=== PATIENT | female | born 1950 | race Caucasian/White ===

== ENCOUNTER 2019-03-24 13:00 | Observation (INO) | payer MEDICARE ==
--- NOTE | 2019-05-06 15:20 | HP ---
PREOPERATIVE HISTORY AND PHYSICAL: DATE OF ADMISSION/SURGERY: 05/19/19 DATE OF OFFICE VISIT: 05/06/19 ATTENDING PHYSICIAN: Dr. Kate Heard.* (DICTATED BY KEISHA MICHAEL) SURGERY SCHEDULED: Left total knee arthroplasty. CHIEF COMPLAINT: Left knee pain. HISTORY OF PRESENT ILLNESS: Ms. Wong is a 69-year-old female with over 20 years of increasingly severe bilateral knee pain where her left is more painful than her right. She has daily aching along the joint line in her knee. She has difficulty walking more than a block without significant pain. She has difficulty with prolonged standing and has difficulty ambulating on stairs. She has used anti- inflammatories, steroid injections, physical therapy, and brace wear which have not been significantly helpful. She would like to proceed with left total knee arthroplasty scheduled with Dr. Heard. PAST MEDICAL HISTORY: Significant for asthma, depression, anxiety, and right Achilles tendinitis/tendinopathy. PAST SURGICAL HISTORY: She has had a biopsy with lumpectomy for a benign breast tumor at age 19, left knee arthroscopy for meniscus tear 10 years ago. MEDICATIONS: 1. She takes CoQ10 Plus 100/20 mg p.o. daily. 2. Skullcap dried herb supplement for anxiety. 3. Supplement called RocketOz X4 probiotic. ALLERGIES: No known drug allergies. FAMILY HISTORY: Her mother had a history of Alzheimer's dementia. Dad with a history of brain hemorrhage. Brother at age 46 from a congenital heart defect. SOCIAL HISTORY: She does not use tobacco, alcohol, or recreational drugs. She lives with housemates. REVIEW OF SYSTEMS: She has had recent problems with vertigo and has chronic problem with IBS/diarrhea which has fully been worked up and no known etiology. She denies loss of consciousness, lightheadedness, shortness of breath, chest pain, palpitations, genitourinary problems, neurologic problems. PHYSICAL EXAMINATION GENERAL: She is a well-developed, well-nourished 69-year-old female, in no acute distress, pleasant, cooperative. VITAL SIGNS: Height 65 inches, weight 239, pulse 76, BP 132/82, temperature 97.5, respirations 15. HEENT: PERRLA. EOMI. LUNGS: Clear to auscultation without wheezes. HEART: Regular rate and rhythm. No murmur. ABDOMEN: Obese, soft, nontender, nondistended. Normoactive bowel sounds x4. MUSCULOSKELETAL: Left knee shows no open lesions or excoriations. She has a moderate effusion, roughly 10 degrees to 120 degrees of flexion. There is no varus or valgus instability. 5/5 dorsiflexion and plantarflexion strength. Full sensation to light touch distally. She has active dorsiflexion of the left ankle. DIAGNOSTIC STUDIES/LAB DATA: Plain films of the left knee show medial bone-on- bone contact with osteophyte formation and subchondral sclerosis. IMPRESSION: Advanced osteoarthritis, left knee. PLAN: The patient is elected to proceed with left total knee arthroplasty, which is scheduled on 05/19/[address] Kate Headr. She is scheduled to see her primary care provider on 05/11/19 and also her process improvement analyst. She has reviewed the risks and benefits of this procedure with Dr. Heard at our office visit today, 05/06/19 and elected to proceed. She will follow up in the office in roughly 10 to 14 days postoperatively. KEISHA MICHAEL [id number]/[facility] #: [id number] SUMIT
[2019-05-19] MEDS ORDERED: Tranexamic Acid 1,000 MG in NS 0.9% 50 ML* (outpatient use) IV SCH ×2
[2019-05-19] MEDS ORDERED: Famotidine IV* 10 MG/ML 2 ML (20 mg) IV ONE (06:00)
[2019-05-19] MEDS ORDERED: celeCOXIB CAP* 200 MG PO ONE (06:00)
[2019-05-19] MEDS ORDERED: Levalbuterol 0.63MG/3ML NEB* UNIT OF USE INH ONE (06:00)
[2019-05-19] MEDS ORDERED: Dexamethasone IV* 4 MG/ML 1 ML (4 MG) IV SLOW PU ONE (06:00)
[2019-05-19] MEDS ORDERED: Acetaminophen IV 1GM/100ML * 1,000 MG/100 ML VIAL IVPB ONE (06:00)
[2019-05-19] MEDS ORDERED: Gabapentin CAP(*) 300 MG PO ONE (06:00)
[2019-05-19] MEDS ORDERED: Lactated Ringers 1000 ML Bag* 1,000 ML IV SCH (06:00)
--- OUTSIDE RECORDS SUMMARY | 2019-05-19 07:04 | XMS REPORT | Continuity of Care Document ---
:1950 External Reference #:[id number] Author Name Speedy Mc M.D. (transmitted by agent of provider Angeles Dooley ) Address [address] [address] Care Team Providers Name Role Phone Clary Martinez MD - Internal Medicine Care Team Information Library Services Assistant [phone] Problems Active Problems Provider Date Localized, primary osteoarthritis Kate Heard M.D. Onset: 01/09/2019 Achilles bursitis Jay Chilel MD Onset: 04/01/2018 Social History Type Date Description Comments Sex Unknown ETOH Use Occasionally consumes alcohol Tobacco Use Start: Unknown Patient has never smoked Smoking Status Reviewed: 05/06/19 Patient has never smoked Allergies, Adverse Reactions, Alerts Description No Known Drug Allergies Medications Active Medications SIG Qnty Indications Ordering Provider Date Co Q-10 Plus Unknown 100-20mg Capsules Skull Cap - Dried Herb Unknown B10.X4 Unknown Medications Administered in Office Medication SIG Qnty Indications Ordering Provider Date Depomedrol 40MG Kate Heard M.D. 01/09/2019 Injection Depomedrol 40MG Kate Heard M.D. 01/09/2019 Injection Triamcinolone (Kenalog) Jay Chilel MD 07/21/2018 Injection Triamcinolone (Kenalog) Jay Chilel MD 07/21/2018 Injection Immunizations Description No Information Available Vital Signs Date Vital Result Comment 05/06/2019 10:04am Height 65 inches 5'5" Weight 239.00 lb Heart Rate 76 /min BP Systolic 132 mmHg BP Diastolic 82 mmHg Respiratory Rate 15 /min Body Temperature 97.5 F Pain Level 4 BMI (Body Mass Index) 39.8 kg/m2 01/09/2019 1:14pm Height 65 inches 5'5" Weight 231.00 lb BP Systolic 122 mmHg BP Diastolic 77 mmHg Respiratory Rate 17 /min Pain Level 7 BMI (Body Mass Index) 38.4 kg/m2 Results Test Date Facility Test Result H/L Range Note Urinalysis Profile 05/08/2019 [facility] Urine Color Yellow [address] [place] [address] [phone] Urine Appearance Cloudy Urine Specific [place] 1.025 Normal 1.010-1.030 Urine pH 5.0 Normal 5-9 Urine Urobilinogen Negative Negative Urine Ketones Negative Negative Urine Protein Negative Negative Urine Leukocytes 1+ Abnormal Negative Urine Blood Negative Negative Urine Nitrite Negative Negative Urine Bilirubin Negative Negative Urine Glucose Negative Negative Urine White Blood Cell Trace(0-5/hpf) Absent Urine Red Blood Cell 2+(6-10/hpf) Abnormal Absent Urine Bacteria Absent Absent Urine Squamous Epithelial Cell Present Abnormal Absent Urine Calcium Oxalate Cryst Present Abnormal Absent Inr/Protime 05/08/2019 [facility] Inr 0.97 Normal 0.82-1.[address] [place] [address] [phone] Laboratory test 05/08/2019 [facility] Partial 34.0 Normal 26.0 -38.[address] [place] [address] Time PTT [phone] CBC Auto Diff 05/08/2019 [facility] White Blood 6.8 10^3/uL Normal 3.5-10.[address] [place] [address] [phone] Red Blood Count 4.60 10^6/uL Normal 3.70-4.87 Hemoglobin 14.1 g/dL Normal 12.0-16.0 Hematocrit 42 % Normal 35-47 Mean Corpuscular Volume 92 fL Normal 80-97 Mean Corpuscular Hemoglobin 31 pg Normal 27-31 Mean Corpuscular HGB Conc 33 g/dL Normal 31-36 Red Cell Distribution Width 14 % Normal 10-15 Platelet Count 275 10^3/uL Normal 150-450 Mean Platelet Volume 8.8 fL Normal 7.4-10.4 Abs Neutrophils 4.5 10^3/uL Normal 1.5-7.7 Abs Lymphocytes 1.6 10^3/uL Normal 1.0-4.8 Abs Monocytes 0.6 10^3/uL Normal 0-0.8 Abs Eosinophils 0.1 10^3/uL Normal 0-0.6 Abs Basophils 0.1 10^3/uL Normal 0-0.2 Abs Nucleated RBC 0.0 10^3/uL Granulocyte % 65.6 % Lymphocyte % 23.7 % Monocyte % 8.3 % Eosinophil % 1.2 % Basophil % 1.2 % Nucleated Red Blood Cells % 0.1 Comp Metabolic 05/08/2019 [facility] Sodium 142 mmol/L Normal 135-[address] [place] [address] [phone] Potassium 3.9 mmol/L Normal 3.5-5.0 Chloride 106 mmol/L Normal 101-111 Co2 Carbon Dioxide 30 mmol/L Normal 22-32 Anion Gap 6 mmol/L Normal 2-11 Glucose 94 mg/dL Normal 70-100 Blood Urea Nitrogen 14 mg/dL Normal 6-24 Creatinine 0.78 mg/dL Normal 0.51-0.95 BUN/Creatinine Ratio 17.9 Normal 8-20 Calcium 9.6 mg/dL Normal 8.6-10.3 Total Protein 6.7 g/dL Normal 6.4-8.9 Albumin 4.0 g/dL Normal 3.2-5.2 Globulin 2.7 g/dL Normal 2-4 Albumin/Globulin Ratio 1.5 Normal 1-3 Total Bilirubin 0.30 mg/dL Normal 0.2-1.0 Alkaline Phosphatase 71 U/L Normal 34-104 Alt 12 U/L Normal 7-52 Ast 14 U/L Normal 13-39 Egfr Non- 72.8 >60 Egfr 88.1 >60 2 Type & Screen 05/08/2019 [facility] Patient Blood Type B Negative [address] [place] [address] [phone] Antibody Screen NEGATIVE Urine Culture And 05/08/2019 [facility] Urine Culture SEE RESULT [address] [place] [address] [phone] 1 Standard intensity warfarin therapeutic range: 2.0-3.0 High intensity warfarin therapeutic range: 2.5-3.5 2 Because ethnic data is not always readily available, this report includes an eGFR for both -Americans and non- Americans. The National Kidney Disease Education Program (NKDEP) does not endorse the use of the MDRD equation for patients that are not between the ages of 18 and 70, are , have extremes of body size, muscle mass, or nutritional status, or are non- or non-. According to the National Kidney Foundation, irrespective of diagnosis, the stage of the disease is based on the level of kidney function: Stage Description GFR(mL/min/1.73 m(2)) 1 Kidney damage with normal or decreased GFR 90 2 Kidney damage with mild decrease in GFR 60-89 3 Moderate decrease in GFR 30-59 4 Severe decrease in GFR 15-29 5 Kidney failure <15 (or dialysis) 3 SEE RESULT BELOW Name: MIGUELBUNNY KING : [address]: Kate Heard MD Acct: [id number] Unit: [id number] AGE: 69 Location: [facility] Re05/08/19 SEX: F Status: REG REF SPEC: [id number] KARLA: 05/08/[address]: Kate Heard MD REQ: [id number] RECD: 05/08/19 STATUS: COMP _ SOURCE: URINE SPDESC: ORDERED: Urine Culture QUERIES: Urine Source: Clean Catch Procedure Result Reported Site Urine Culture Final 05/09/19- 1624 ML No growth of clinically significant organisms * ML - Main Lab . END OF REPORT DEPARTMENT OF PATHOLOGY, [address] [place] [address] Jake Easley M.D. Director [facility] # [id number] Procedures Date Code Description Status 01/09/2019 49696 Inject/Drain Joint/Bursa Major W/O US Completed Medical Devices Description No Information Available Encounters Type Date Location Provider Dx Diagnosis Office Visit 01/09/2019 [facility] Kate Heard, M25.561 Pain in right 1:[facility] knee M25.562 Pain in left knee M25.461 Effusion, right knee M25.462 Effusion, left knee M17.0 Bilateral primary osteoarthritis of knee Assessments Date Code Description Provider 05/06/2019 M25.562 Pain in left knee Kate Heard M.D. 05/06/2019 M25.462 Effusion, left knee Kate Heard M.D. 05/06/2019 M17.0 Bilateral primary osteoarthritis of knee Kate Heard M.D. 01/09/2019 M25.561 Pain in right knee Kate Heard M.D. 01/09/2019 M25.562 Pain in left knee Kate Heard M.D. 01/09/2019 M25.461 Effusion, right knee Kate Heard M.D. 01/09/2019 M25.462 Effusion, left knee Kate Heard M.D. 01/09/2019 M17.0 Bilateral primary osteoarthritis of knee Kate Heard M.D. Plan of Treatment Future Appointment(s):05/29/2019 1:45 pm - Kate He[facility]/19/2019 9:45 am - Kate Heard M.D[facility] at [facility]05/06/2019 - Kate Heard M.D.M25.562 Pain in left kneeFollow up:Follow up: 10-14 days post opM25.462 Effusion, left kneeM17.0 Bilateral primary osteoarthritis of knee Functional Status Description No Information Available Mental Status Description No Information Available Referrals Description No Information Available
--- OUTSIDE RECORDS SUMMARY | 2019-05-19 07:04 | XMS REPORT | Continuity of Care Document ---
:1950 External Reference #:[id number] Author Name Kate Heard M.D. 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/2019 9:45 am - Kate Heard M.D. at [facility]/06/2019 - Kate Heard M.D.M25.562 Pain in left kneeFollow up:Follow up: 10-14 days post opM25.462 Effusion, left kneeM17.0 Bilateral primary osteoarthritis of knee Functional Status Description No Information Available Mental Status Description No Information Available Referrals Description No Information Available
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
--- OUTSIDE RECORDS SUMMARY | 2019-05-19 07:04 | XMS REPORT | Summary of Care ---
:1950 Author Organization [facility] Address [address] [place] [address] Care Team Providers Name Role Phone Clary Martinez MD Primary Care Provider Reason for Visit Reason Comments Back Pain Encounter Details Date Type Department Care Team Description 05/06/2019 Office Visit [facility] - Paris Hunt, Chronic bilateral low [place] Physical PT back pain, with Therapy [address] sciatica presence [address] [place] [address] unspecified (Primary [address] [phone] Dx) [place] [phone] Allergies No Known Allergiesdocumented as of this encounter (statuses as of 05/06/2019) Medications Medication Sig Dispensed Refills Start Date End Date Status Loperamide HCl (IMODIUM Take 1 Tab by 0 Active A-D PO) mouth NEEDED. Coenzyme Q10 (COQ10) 100 Take by mouth. 0 Active MG Oral Cap Lactobacillus Rhamnosus, Take by mouth. 0 Active GG, (PROBIOTIC COLIC PO) meclizine (ANTIVERT) 25 Take 1 Tab by 20 Tab 0 04/24/2019 Active MG Oral Tab mouth THREE TIMES DAILY NEEDED for dizziness/vertig o. documented as of this encounter (statuses as of 05/06/2019) Active Problems Problem Noted Date Achilles tendinitis 04/30/2018 documented as of this encounter (statuses as of 05/06/2019) Social History Tobacco Use Types Packs/Day Years [...] encounter Progress Notes Gilbert Paris, PT - 05/06/2019 4:00 PM EDT [facility] Treatment Note Outpatient Physical Therapy Services [facility] PHYSICAL THERAPY [address] [place] [phone] Treatment Number: 2 Referring Physician: Clary Martinez Primary Diagnosis: ICD-9-CM ICD-10-CM 1. Chronic bilateral low back pain, with sciatica presence unspecified 724.2 M54.5 338.29 G89.29 Time In: 0 Time Out: 5 Total Session Minutes: 25 Pain at Start of Care: 2/10 Pain at End of Care: 0/10 Subjective Comments: Had to stop doing extensions prone due to L shoulder pain. Over all better but not resolved. Still surgery scheduled for 05/19 Interventions: Therapeutic Exercises (22659) Patient Education/Home Exercise Program: see exercises below Number of Exercises?: 8 Total Minutes (all Therapeutic Exercise): 15 Exercise #1 Exercise Name: Press ups on forearms Reason for Exercise: Joint Mobility Location/Body Area: Lumbar Spine Sets/Reps: 10x Exercise #2 Exercise Name: Prone ly ing Reason for Exercise: Pain Control Location/Body Area: Lumbar Spine Sets/Reps: 5 min Exercise #3 Exercise Name: Standing hip flexor stretch Reason for Exercise: Joint Mobility Location/Body Area: Hip Exercise #4 Exercise Name: Ming stretch Reason for Exercise: Flexibility Location/Body Area: Hip Sets/Reps: 60 sec each Exercise #5 Exercise Name: Standing extensions on wal Reason for Exercise: Pain Control Location/Body Area: Lumbar Spine Sets/Reps: 10x Exercise #6 Exercise Name: Standing back extension with towel pulll Reason for Exercise: Pain Control Location/Body Area: Lumbar Spine Sets/Reps: 10x Exercise #7 Exercise Name: modified ming stretch Reason for Exercise: Flexibility Location/Body Area: Hip Sets/Reps: 60 sec each side Manual Therapy (60120) Soft Tissue Mobilization: Manual Tissue Mobilization Soft Tissue Mobilization Details: lumbar paraspinals on L PROM: P-A lumbar spine Total Minutes (All Manual Therapy): 10 Assessment: Patient demonstrates improved lumbar extension, no radicular pain. Tolerated standing extensions well and modified ming stretch vs standing hip flexor stretch. Patient also reports ongoing difficulty in prolonged sitting, rising from a chair, walking. Skilled Physical Therapy servicesare required to address ongoing functional and objective limitations/impairments including decreasedlumbar extension, short hip flexors. Plan for Next Visit: FU 1 more visit before her surgery Total UNTIMED Code Treatment Minutes: Total TIMED Code Treatment Minutes: 25 Total Treatment Minutes: 25 Author: Paris Hunt, PT 05/06/2019 16:25 documented in this encounter Plan of Treatment Date Type Specialty Care Team Description 05/11/2019 Office Visit Internal Medicine Clary Martinez MD [facility] [place] [address] [phone] 05/11/2019 Office Visit Cardiology Jorje Rivera MD [address] [place] [address] [phone] 05/11/2019 Office Visit Physical Therapy Paris Hunt, PT [address] [place] [address] [phone] 05/21/2019 Office Visit Internal Medicine Clary Martinez MD [address] [place] [address] [phone] Health Maintenance Due Date Last Done Comments [...] pain, with sciatica presence unspecified - Primary documented in this encounter Insurance Payer Benefit Plan / Subscriber ID Effective Dates Phone Address Type Group MEDICARE MEDICARE PART A xxxxxxxxxxx 2013-Present Medicare & B [facility]CIAL [facility] xxxxxxxxxxx 2018-Present [facility] OPTIONS documented as of this encounter
--- OUTSIDE RECORDS SUMMARY | 2019-05-19 07:04 | XMS REPORT | Summary of Care ---
:1950 Author Organization [facility] Address [address] [place] [place] [address] Care Team Providers Name Role Phone Clary Martinez MD Primary Care Provider Reason for Visit Reason Comments Back Pain Encounter Details Date Type Department Care Team Description 05/11/2019 Office Visit [facility] - Paris Hunt, Chronic bilateral low [place] Physical PT back pain, with Therapy [address] sciatica presence [address] [place] [address] unspecified (Primary [address] [phone] Dx) [place] [phone] Allergies No Known Allergiesdocumented as of this encounter (statuses as of 05/11/2019) Medications Medication Sig Dispensed Refills Start Date [...] as of this encounter (statuses as of 05/11/2019) Active Problems Problem Noted Date Achilles tendinitis 04/30/2018 documented as of this encounter (statuses as of 05/11/2019) Social History Tobacco Use Types Packs/Day Years [...] encounter Progress Notes Gilbert Paris, PT - 05/11/2019 4:00 PM EDT [facility] Treatment Note Outpatient Physical Therapy Services [facility] PHYSICAL THERAPY [address] [place] [phone] Treatment Number: 3 Referring Physician: Clary Martinez Primary Diagnosis: ICD-9-CM ICD-10-CM 1. Chronic bilateral low back pain, with sciatica presence unspecified 724.2 M54.5 338.29 G89.29 Time In: 399 Time Out: 5 Total Session Minutes: 25 Pain at Start of Care: 2/10 Pain at End of Care: 0/10 Subjective Comments: Today is a rough day, whenever her knees are really sore the rest of her bodyhurts too. Interventions: Therapeutic Exercises (46158) Patient Education/Home Exercise Program: see exercises below [...] Sets/Reps: 60 sec each side Manual Therapy (60712) Soft Tissue Mobilization: Manual Tissue Mobilization Soft Tissue Mobilization Details: lumbar paraspinals on L PROM: P-A lumbar spine Total Minutes (All Manual Therapy): 15 Assessment: Patient demonstrates limited lumbar extension due to excessive flexion at knees causinghip flexion. Patient also reports ongoing difficulty in standing, walking, rising from a chir. Skilled Physical Therapy services are required to address ongoing functional and objective limitations/ impairments including decreased lumbar mobility and core strength. Plan for Next Visit: Pt will be having TKA on L knee next week. We will resume Pt when she is cleared by Total UNTIMED Code Treatment Minutes: Total TIMED Code Treatment Minutes: 30 Total Treatment Minutes: 30 Author: Paris Hunt, PT 05/11/2019 16:31 documented in this encounter Plan of Treatment Date Type Specialty Care Team Description 05/21/2019 Office Visit Internal Medicine Clary Martinez MD [address] [place] [phone] Health Maintenance Due Date Last Done Comments [...] PART A xxxxxxxxxxx 2013-Present Medicare & B [facility] COMMERCIAL [facility] CARE xxxxxxxxxxx 2018-Present [facility] OPTIONS documented as of this encounter
--- OUTSIDE RECORDS SUMMARY | 2019-05-19 07:04 | XMS REPORT | Summary of Care ---
:1950 Author Organization [facility] Address [address] [place] [place] [address] Care Team Providers Name Role Phone Clary Martinez MD Primary Care Provider Reason for Visit Reason Comments Dizziness pt states 1 weeks of intermittent dizziness and nausea. yesterday was the worest bout." the room was spinning " Encounter Details Date Type Department Care Team Description 04/24/2019 Office Visit [facility] Dinora Del Castillo, Vertigo (Primary Dx) [address] [place] [address] [phone] [place] [address] [phone] Allergies No Known Allergiesdocumented as of this encounter (statuses as of 04/24/2019) Medications Medication Sig Dispensed Refills Start Date [...] as of this encounter (statuses as of 04/24/2019) Active Problems Problem Noted Date Achilles tendinitis 04/30/2018 documented as of this encounter (statuses as of 04/24/2019) Social History Tobacco Use Types Packs/Day Years Used Date Never Smoker Smokeless Tobacco: Never Used Sex Assigned at Date Recorded Not on file Job Start Date Occupation Industry Not on file Not on file Not on file Travel History Travel Start Travel End No recent travel history available. documented as of this encounter Last Filed Vital Signs Vital Sign Reading Time Taken Comments Blood Pressure 128/82 04/24/2019 7:51 AM EDT Pulse 74 04/24/2019 7:51 AM EDT Temperature - - Respiratory Rate - - Oxygen Saturation 97% 04/24/2019 7:51 AM EDT Inhaled Oxygen Concentration - - Weight 106.1 kg (234 lb) 04/24/2019 7:51 AM EDT Height 165.1 cm (5' 5") 04/24/2019 7:51 AM EDT Body Mass Index 38.94 04/24/2019 7:51 AM EDT documented in this encounter Patient Instructions Patient InstructionsDoDinora mejia PA-C - 04/24/2019 8:00 AM EDTEscribed meclizine 25mg, 1 pill TID as needed, will cause drowsiness Push water, reduce salt intake Call if not improving or with any questions or concerns documented in this encounter Progress Notes Dinora Del Castillo PA-C - 04/24/2019 8:00 AM EDT PATIENT: Venus Wong : 1950 DATE OF SERVICE: 04/24/2019 REFERRING PRACTITIONER: Liam PRIMARY CARE PROVIDER: Clary Martinez CHIEF COMPLAINT: Chief Complaint Patient presents with Dizziness pt states 1 weeks of intermittent dizziness and nausea. yesterday was the worest bout." the room was spinning " Subjective HISTORY OF PRESENT ILLNESS: Venus Wong is a 69-y.o. female who presents with intermittent dizziness and nausea x 1 week Says yesterday symptoms were very bad, room was spinning Water: not much daily Salt: often eats salty foods Driving to [place] Saturday Denies fever, chills, vomiting, diarrhea, chest pains, SOB Past Medical History: Diagnosis Date Depression situational- has not had in years History of breast surgery right breast lumpectomy at age 20 non cancerous Postmenopausal Past Surgical History: Procedure Laterality Date ARTHROSCOPY, KNEE MENISECTOMY Left RI MASTECTOMY, SIMPLE, COMPLETE Right lumpectomy- benign age 19 RI REMOVAL GALLBLADDER Family History Problem Relation Age of Onset Dementia Mother Respiratory Mother of pneumonia Cancer Mother throat Aneurysm Father AAA Stroke Father of massive stroke Heart Brother Congenital heart defect No Known Problems Daughter No Known Problems Son No Known Problems Son No Known Problems Son No Known Problems Daughter Current Outpatient Medications Medication Sig Loperamide HCl (IMODIUM A-D PO) Take 1 Tab by mouth NEEDED. No current facility-administered medications for this visit. No Known Allergies Social History Socioeconomic History Marital status: Single Spouse name: Not on file Number of children: Not on file Years of education: Not on file Highest education level: Not on file Occupational History Not on file Social Needs Financial resource strain: Not on file Food insecurity: Worry: Not on file Inability: Not on file Transportation needs: Medical: Not on file Non-medical: Not on file Tobacco Use Smoking status: Never Smoker Smokeless tobacco: Never Used Substance and Sexual Activity Alcohol use: Not on file Comment: social- occassional Drug use: No Sexual activity: Not on file Lifestyle Physical activity: Days per week: Not on file Minutes per session: Not on file Stress: Not on file Relationships Social connections: Talks on phone: Not on file Gets together: Not on file Attends quaker service: Not on file Active member of club or organization: Not on file Attends meetings of clubs or organizations: Not on file Relationship status: Not on file Intimate partner violence: Fear of current or ex partner: Not on file Emotionally abused: Not on file Physically abused: Not on file Forced sexual activity: Not on file Other Topics Concern Back Care Not Asked Bike Helmet Not Asked Blood Transfusions Not Asked Caffeine Concern Not Asked Exercise Not Asked Hobby Hazards Not Asked International Travel Not Asked Service Not Asked Occupational Exposure Not Asked Seat Belt Not Asked Self-Exams Not Asked Sleep Concern Not Asked Special Diet Not Asked Stress Concern Not Asked Weight Concern Not Asked Social History Narrative Not on file REVIEW OF SYSTEMS: Skin: negative skin lesions Eyes: negative visual blurring Ears/Nose/Throat: positive sinus pressure (chronic), post nasal drip Respiratory: positive cough Cardiovascular: negative chest pain Gastrointestinal: negative abdominal pain, constipation, diarrhea, nausea or vomiting Genitourinary: negative burning on urination, dysuria or vaginal discharge Musculoskeletal: positive arthritis/joint pain Neurologic: positive dizziness Psychiatric: negative anxiety Hematologic/Lymphatic/Immunologic: positive allergies Endocrine: negative diabetes or hot flashes/sweats Objective PHYSICAL EXAMINATION: VITALS: BP 128/82 (BP Location: Left arm, Patient Position: Sitting) | Pulse 74 | Ht 5' 5" (1.651m) | Wt 234 lb (106.1 kg) | SpO2 97% | BMI 38.94 kg/m Body mass index is 38.94 kg/m. General appearance: alert, mild distress, cooperative, oriented times 3, obese Skin: Skin color, texture, turgor normal. No rashes or lesions. Head: Normocephalic. No masses, lesions, tenderness or abnormalities Eyes: conjunctivae/corneas clear. PERRL, EOM's intact. No nystagmus Ears: TMs and canals normal bilaterally Nose/Sinuses: mucosa normal, no rhinorrhea Oropharynx: positive findings: mild oropharyngeal erythema, post nasal drip present Neck: Neck supple, FROM. No cervical or supraclavicular adenopathy. Lungs: Lungs clear. Chest symmetrical. Normal breath sounds. Heart: RRR. No murmur, clicks or gallops. No peripheral edema NEUROLOGIC: alert, oriented x3. Gait normal. Cranial nerves 2-12 and sensation grossly intact. Romberg: positive sway, negative pronator drift . IMPRESSION: ICD-9-CM ICD-10-CM 1. Vertigo 780.4 R42 Plan PLAN: Escribed meclizine 25mg, 1 pill TID as needed, will cause drowsiness Push water, reduce salt intake Call if not improving or with any questions or concerns Author: Dinora Del Castillo PA-C 04/24/2019 07:50 documented in this encounter Plan of Treatment Date Type Specialty Care Team Description 05/07/2019 Office Visit Physical Therapy Paris Hunt, PT [address] [place] [address] [phone] 05/21/2019 Office Visit Internal Medicine Clary Martinez MD [address] [place] [address] Health Maintenance Due Date Last Done [...] filedocumented in this encounter Visit Diagnoses Diagnosis Vertigo - Primary Dizziness and giddiness documented in this encounter Insurance Payer Benefit Plan / Subscriber ID Effective Dates Phone Address Type Group MEDICARE MEDICARE PART A xxxxxxxxxxx 2013-Present Medicare & B [facility] xxxxxxxxxxx 2018-Present [facility] OPTIONS documented as of this encounter
[2019-05-19] MEDS ORDERED: Dexamethasone IV* 4 MG/ML 1 ML (4 MG) ONE (07:46)
[2019-05-19] MEDS ORDERED: Famotidine IV* 10 MG/ML 2 ML (20 mg) ONE (07:47)
[2019-05-19] MEDS ORDERED: ceFAZolin 2 GM in NS PREMIX(*) 2 GM/100 ML BAG IVPB ONE (07:47)
[2019-05-19] MEDS ORDERED: Buffered Lidocaine 1% SYRIN* 1 ML/SYRINGE INTRADERM ONE (07:47)
[2019-05-19] MEDS ORDERED: celeCOXIB CAP* 200 MG ONE (07:47)
[2019-05-19] MEDS ORDERED: Gabapentin CAP(*) 300 MG ONE (07:47)
[2019-05-19] MEDS ORDERED: Acetaminophen IV 1GM/100ML * 100 ML ONE (08:03)
[2019-05-19] MEDS ORDERED: KETAMINE HCL* 50 MG/ML 10 ML VIAL ONE (08:06)
[2019-05-19] MEDS ORDERED: Bupivacaine 0.5% SDV PF* 30ML VIAL ONE (08:07)
[2019-05-19] MEDS ORDERED: Midazolam* 1 MG/ML 5 ML VIAL (5 MG) ONE (08:07)
[2019-05-19] MEDS ORDERED: Ondansetron INJ* 2 MG/ML VIAL ONE (08:08)
[2019-05-19] MEDS: Buffered Lidocaine 1% SYRIN* 1 ML/SYRINGE INTRADERM ONE ×2 (08:14→14:01)
[2019-05-19] MEDS ORDERED: ROPIVACAINE 5 MG/ML 30 ML BTL (0.5%) ONE ×3 (08:34→10:32)
[2019-05-19] MEDS ORDERED: HYDROmorphone INJ1* 1 MG/ML SYRINGE IV PRN (10:20)
[2019-05-19] MEDS ORDERED: Scopolamine 1.5 mg* PATCH TRANSDERM PRN (10:20)
[2019-05-19] MEDS ORDERED: Ondansetron INJ* 2 MG/ML VIAL IV PRN ×2 (10:20→13:09)
[2019-05-19] MEDS ORDERED: DiMENhydriNATE IV* 50 MG/ML VIAL IV PUSH PRN (10:20)
[2019-05-19] MEDS ORDERED: Naloxone* 0.4 MG/ML 1 ML VIAL IV PRN (10:20)
[2019-05-19] MEDS ORDERED: fentaNYL* 50 MCG/ML 2 ML VIAL (100 MCG VIAL) IV PRN (10:20)
[2019-05-19] MEDS ORDERED: Propofol* 10 MG/ML 20 ML BTL ONE (11:44)
[2019-05-19] MEDS ORDERED: Polyethylene Glycol 3350* 17 GM PACKET PO PRN (13:09)
[2019-05-19] MEDS ORDERED: Cyclobenzaprine TAB* 10 MG PO PRN (13:09)
[2019-05-19] MEDS ORDERED: diPHENhydraMINE IV* 50 MG/ML 1 ml VIAL (BENADRYL) IV PRN (13:09)
[2019-05-19] MEDS ORDERED: Morphine 4 MG/ML VIAL (1 ml) 4 MG/ML VIAL IV PRN (13:09)
[2019-05-19] MEDS ORDERED: Magnesium Hydroxide LIQ* 30 ML UDC PO PRN (13:09)
[2019-05-19] MEDS ORDERED: Ondansetron ODT TAB* 4 MG PO PRN (13:09)
[2019-05-19] MEDS ORDERED: diPHENhydraMINE PO* 25 MG PO PRN (13:09)
[2019-05-19] MEDS ORDERED: Ketorolac INJ* 30 MG/ML 1 ML VIAL IV PRN (13:09)
[2019-05-19] MEDS ORDERED: oxyCODONE/Acetamin 5/325 MG* TAB PO PRN ×2 (13:09)
[2019-05-19] MEDS: Lactated Ringers 1000 ML Bag* 1,000 ML IV SCH ×2 (14:25→23:46)
[2019-05-19] MEDS: Acetaminophen TAB* 325 MG PO SCH ×2 (14:54→21:34)
[2019-05-19] MEDS: traMADol TAB* 50 MG PO SCH ×2 (14:54→19:44)
[2019-05-19] MEDS: ceFAZolin 1 GM ADVAN(*) 1 GM in NS 0.9% 50 ML* 50 ML IVPB SCH ×2 (16:04→23:44)
[2019-05-19] MEDS: oxyCODONE TAB* 5 MG TAB PO PRN (16:05)
--- NOTE | 2019-05-19 17:25 | PN ---
Progress Note - Progress Note Date of Service: 05/19/19 Note: Pt seen and examined at bedside POD 0 SP LTK. She feels well without complaints. Denies chest pain, shortness of breath, dizziness, nausea. Dressing CDI, DF/PF intact, DP2+, sensation intact to light touch distally. She does not have a hospitalist consult, she does have asthma though has not needed a rescue inhaler in years.
--- NOTE | 2019-05-19 19:32 | OP ---
Operative Report - Blank - Operative Report Date of Operation: 05/19/19 Note: BUNNY RIVERA 1950 Date of Surgery: 05/19/19 Kate Heard MD [employer] Tool Operator: Valentín VALDES did help throughout the procedure with preparation of the knee, wound retraction, manipulation of the knee, and wound closure. Anesthesiologist: Cornelio Degroot MD Anesthesia Type: Spinal Preoperative Diagnosis: Left severe degenerative osteoarthritis of the knee Postoperative Diagnosis: As above Procedure Performed: Left Total Knee Arthroplasty Tourniquet time: 80 minutes Complications: None Specimen: Bone and cartilage from the left knee joint sent to pathology. Hardware Used: Cemented Barahona and Nephew total knee hardware was used - For the femur a size 5 left narrow legion posterior stabilized femoral component, for the tibia a size 3 left cristina II tibial baseplate, for the insert a size 9mm 3 -4 posterior stabilized articular polyethylene insert, and for the patella a size 32 3-peg all poly patella. The Navio robotic system was used for this surgery - including 4 pins and 3 screws that were placed in bone and removed. Brief History/Indication: BUNNY RIVERA was known in clinic and had a history of severe left knee pain and swelling. She failed conservative treatment with anti-inflammatories, pain pills, intra-articular injections and physical therapy. She elected to undergo left total knee arthroplasty due to continued pain and decreased quality of life. Radiographs showed severe end stage osteoarthritis of the knee with bone on bone contact. Informed consent was obtained from the patient. She understood the risks of surgery included but were not limited to: bleeding, infection, damage to nearby structures, intraoperative fracture, nerve palsy, failure of the hardware, early loosening, knee stiffness or loss of motion, anesthesia complications, stroke, heart attack , blood clot and . She wished to proceed. She wished to have the navio robotic system for her total knee and accepted any additional risks from this decision. Intra-Operative Findings: Intraoperatively the patient was noted to have severe loss of cartilage in all 3 compartments of the knee. Description of the Procedure: BUNNY RIVERA was identified in the preanesthesia unit. Her left knee was marked as the correct operative side. Informed consent was signed and placed in the chart. The patient was taken to the operating room and placed under anesthesia without complication. A thomas catheter was placed. A tourniquet was placed on the left thigh. The left lower extremity was prepped and draped in the usual sterile fashion. Preoperative time-out was made to correctly identify the patient, side and site. Appropriate intraoperative antibiotics were given within one hour of incision. Tourniquet was inflated. A midline incision was made and carried sharply down to the extensor mechanism. A new 10 blade was used to make a standard medial parapatellar arthrotomy. The patella was subluxed laterally. Electrocautery was used to dissect soft tissue off the superomedial tibia to the midsagittal plane. The knee was flexed up. The anterior horn of the lateral meniscus and the ACL/PCL were sharply incised. A checkpoint screw was placed in the femur and tibia. Two pins were placed in the femur and two in the tibia - the arrays for the SiTune software were firmly attached. The SiTune robotic system was used to enter anatomic checkpoints and the knee was taken through a range of motion. The proper hardware sizes and placement were decided upon using the SiTune software. The SiTune robotic lashae was used to make the distal femoral cut and to yosi the rotation for the multip cutting jig. The size 5 multi-cutting jig was pinned on the distal femur. The oscillating saw was used to make the appropriate 4 chamfer cuts. Next the PCL was completely released. The extramedullary tibial cutting guide was pinned on the proximal tibia using the SiTune robotic system guide for varus/valgus and slope. The oscillating saw was used to make the proximal tibial cut. The bone was carefully removed. The knee was brought out into full extension. The spacer block was placed and had excellent fit with the knee in full extension. The medial and lateral ligaments were well balanced. The flexion and extension gaps were well balanced. The knee was flexed up. [facility] was placed both medially and laterally. Any remaining meniscus was removed with electrocautery. Curved osteotome was used to remove any posterior osteophytes. The tibial tray and drop claudette were placed and confirmed a satisfactory tibial cut. The size 5 left narrow femoral trial was impacted onto the distal femur. This trial had excellent fit and stability. The box for the posterior stabilized implant was prepared using a box cut osteotome and a reamer. Next a tibial tray trial and 9 mm insert trial was placed. The knee was taken through a range of motion and had full extension to 130 degrees of flexion. Patellofemoral tracking was satisfactory. The final checkpoints and range of motion were entered into the navio software. The four pins and two screws were carefully removed. The patella was inverted and sized to a size 32. Three peg holes were drilled through the size 32 drill guide. The trial patella was placed and the knee was taken through a range of motion. There was satisfactory patellofemoral tracking. All trials were removed. The tibia was subluxed anteriorly and sized to a size 3. The proximal tibial was prepared with a size 3 keel punch. All bony cut surfaces were irrigated with sterile saline and dried. Final implants were cemented into place starting with the tibia, followed by the femur, and last the patella. A 9 mm insert trial was placed and the knee was brought into full extension. Tourniquet was turned down and the knee was copiously irrigated with sterile saline. Electrocautery was used to obtain meticulous hemostasis. Once the cement had fully cured, the insert trial was removed. Any excess cement was removed from around the hardware and capsule. Final insert chosen was a 9 mm posterior stabilized Cristina II articular insert size 3-4. Stability of the insert was checked and noted to be stable. The extensor mechanism was closed using number 1 vicryls. The rest of the incision was closed in a layered fashion using 0 and 2-0 vicryls. The skin was closed using 3-0 nylon suture. Sterile xeroform, 4x4s and webril were used to cover the incision. John wrap and cold pack were used to cover the dressings. The patients anesthesia was reversed without difficulty. She was taken to the PACU in stable condition. Intended weight-bearing will be as tolerated.
[2019-05-19] MEDS: Magnesium Hydroxide LIQ* 30 ML UDC PO SCH (21:34)
[2019-05-19] MEDS: Docusate CAP* 100 MG PO SCH (21:35)
[2019-05-20] MEDS: traMADol TAB* 50 MG PO SCH ×3 (01:55→14:07)
[2019-05-20] MEDS: Acetaminophen TAB* 325 MG PO SCH ×2 (05:56→14:08)
[2019-05-20 06:15] LABS: Hematocrit 33 % (35-47); Hemoglobin 11.1 g/dL (12.0-16.0); Mean Platelet Volume 8.6 fL (7.4-10.4); Platelet Count 227 10^3/uL (150-450)
[2019-05-20 06:35] LABS: BUN/Creatinine Ratio 17.3 (8-20); Calcium 8.7 mg/dL (8.6-10.3); EGFR African American 84.3 (>60); EGFR Non-African American 69.7 (>60)
[2019-05-20] MEDS: ceFAZolin 1 GM ADVAN(*) 1 GM in NS 0.9% 50 ML* 50 ML IVPB SCH (07:41)
[2019-05-20] MEDS: Magnesium Hydroxide LIQ* 30 ML UDC PO SCH (07:48)
[2019-05-20] MEDS: Docusate CAP* 100 MG PO SCH (07:48)
[2019-05-20] MEDS ORDERED: Vitamin THERAPEUTIC TAB PO SCH (09:00)
[2019-05-20] MEDS ORDERED: Apixaban* 2.5 MG TAB PO SCH (09:00)
[2019-05-20] MEDS: oxyCODONE TAB* 5 MG TAB PO PRN ×2 (10:16→17:27)
--- NOTE | 2019-05-20 12:33 | PN ---
Progress Note - Progress Note Date of Service: 05/20/19 SOAP: Subjective: []Pt seen at bedside, she feels very well and desires DC home today. Denies CP, SOB, dizziness, nausea. Knee pain is well controlled Objective: []Gen: Appears well, NAD LLE: Left knee dressing CDI, thigh is soft, DF/ PF intact, DP2+, sensation intact to light touch distally Calve supple and nontender without erythema, edema or palpable cords Assessment: [] POD 1 sp LTK Plan: []WBAT PT/OT eliquis 2.5 mg po BID x 30 days post op Plan for DC home today after PM PT. Will need dressing change prior to DC. Desires VNS Work on IS Vital Signs Temp 97.9 F 05/20/19 11:24 Pulse 64 05/20/19 11:24 Resp 16 05/20/19 11:24 BP 125/53 05/20/19 11:24 Pulse Ox 92 05/20/19 11:24 Intake & Output 05/19/19 05/20/19 05/20/19 18:59 06:59 18:59 Intake Total 1692 1285 Output Total 550 Balance 1142 1285 Weight 242 lb Intake: IV Fluids 862 990 LR 862 990 IVPB 55 ABX - CEFAZOLIN 55 Oral 830 240 Output: Valdiv[place] 550 Other: Estimated Void Medium Laboratory Last Values Hgb 11.1 g/dL (12.0-16.0) L 05/20/19 05:55 Hct 33 % (35-47) L 05/20/19 05:55 Plt Count 227 10^3/uL (150-450) 05/20/19 05:55 MPV 8.6 fL (7.4-10.4) 05/20/19 05:55 Sodium 139 mmol/L (135-145) 05/20/19 05:55 Potassium 5.0 mmol/L (3.5-5.0) 05/20/19 05:55 Chloride 106 mmol/L (101-111) 05/20/19 05:55 Carbon Dioxide 32 mmol/L (22-32) 05/20/19 05:55 Anion Gap 1 mmol/L (2-11) L 05/20/19 05:55 BUN 14 mg/dL (6-24) 05/20/19 05:55 Creatinine 0.81 mg/dL (0.51-0.95) 05/20/19 05:55 Est GFR ( Amer) 84.3 (>60) 05/20/19 05:55 Est GFR (Non-Af Amer) 69.7 (>60) 05/20/19 05:55 BUN/Creatinine Ratio 17.3 (8-20) 05/20/19 05:55 Glucose 144 mg/dL (70-100) H 05/20/19 05:55 Calcium 8.7 mg/dL (8.6-10.3) 05/20/19 05:55
--- NOTE | 2019-05-20 12:41 | DS ---
Orthopedic Discharge Summary - Discharge Summary Date of Admission:05/19/19 Date of Discharge: 05/20/19 Date of Surgery: 05/19/19 Attending Orthopedic Provider: Dr Heard Pre-operative Diagnosis: Left knee osteoarthritis Operative Procedure: left total knee replacement Disposition of Patient: home Condition of Patient: stable History: BUNNY RIVERA is a 69 year old F with years of increasingly severe left knee pain. Patient has failed conservative management and has elected to undergo a left total knee replacement Hospital Course: BUNNY was admitted to [facility] on 05/19/19. Patient underwent a left total knee replacement without complication followed by a brief recovery in PACU and transfer to the Short Stay Surgical Unit in stable condition. Our physical therapy service also participated in this patients care. Post-op day 1: patient was alert and in no acute distress. Dressing was clean, dry and intact. Operative extremity dorsiflexion and plantarflexion intact, sensation intact to light touch distally, DP2+. Prior to DC dressing was changed, incision was clean, dry and intact. Patient was deemed to be medically and orthopedically stable for discharge. Physical therapy goals were met. Home Medications Medication Instructions Recorded Confirmed Type Co Q-10 1 cap PO DAILY 05/19/19 05/19/19 History Probiotic/Prebiotic 1 cap PO BID 05/19/19 05/19/19 History Skull Cap 16 drop PO BID 05/19/19 05/19/19 History Acetaminophen TAB* Tylenol TAB* 975 mg PO Q8H tab 05/20/19 Rx Apixaban* [Eliquis*] 2.5 mg PO BID #60 tab 05/20/19 Rx Docusate CAP* [Colace Cap*] 100 mg PO BID PRN #90 cap 05/20/19 Rx traMADol TAB* [Ultram*] 50 mg PO Q6H PRN #56 tab MDD 8 05/20/19 Rx Discharge Instructions following Orthopedic Surgery: Activity: * Weight Bearing as tolerated * Continue physical therapy and occupational therapy exercises as shown * Home physical therapy Wound care: * OK to shower on post-op day 3, no bathing, swimming, or submerging wound. * Use gentle soap, pat dry. Cover with gauze, JHOAN wrap or tape. * Visiting home nurse to do wound checks. Call Orthopedic office for: * Increased drainage * Redness * Increased pain * Fever Go to ER with shortness of breath or chest pain. Diet: * Regular diet * Increase fluids and fiber to prevent constipation. * Continue to use stool softeners, call office if no bowel motion within 48 hours. Medications See Home Medication List in your packet for medications that you should take after discharge. DVT Prophylaxis: This medication increases bleeding tendency Eliquis Dosin.5 mg, 1 tab every 12 hours x 30 days post op Pain Control: tramadol 50 mg. take 1 tab for moderate pain and 2 tabs for severe pain every 6 hours as needed. Hold for sedation, wean off as soon as pain allows. Max of 8 tabs in one day Antibiotics are required prior to any dental work. FOLLOW UP: Follow up with [Félix] Within 10-14 days, call for appointment Please call our office with any questions or concerns ([phone]) RX to [email or web address]
[2019-05-20 15:37] VITALS: BP 140/67
[2019-05-21] MEDS ORDERED: Bisacodyl SUPP* 10 MG SUPP PR PRN (13:09)
== END 2019-05-20 19:40 | disposition home or self-care (01) ==
LOC: AA 05-19 07:01 → INTOOBSV 05-19 07:01 → SSU 05-19 13:09
PROVIDERS: ADMIT Orthopaedic Surgery Adult Reconstructive Orthopaedic Surgery; ATTEND Orthopaedic Surgery Adult Reconstructive Orthopaedic Surgery
DX: M17.12 Unilateral primary osteoarthritis, left knee (principal); Z79.899 Other long term (current) drug therapy; F41.9 Anxiety disorder, unspecified; J45.909 Unspecified asthma, uncomplicated; F32.9 Major depressive disorder, single episode, unspecified; M76.61 Achilles tendinitis, right leg; R07.9 Chest pain, unspecified
CPT/HCPCS: 36415; 80048; 85014; 85018; 85049; 88305; 88311; A9270-GY; C1776; G0378; G8978-GP-CL; G8979-GP-CI; G8987-GO-CJ; G8988-GO-CJ; G8989-GO-CJ; J0690; J1100; J2250; J2405; J2704; J2795; J3490

== ENCOUNTER 2019-09-03 10:30 | Observation (INO) ==
[2020-04-28] MEDS ORDERED: Buffered Lidocaine 1% SYRIN 1 ml INTRADERM ONE (06:00)
[2020-04-28] MEDS ORDERED: Dexamethasone IV 4 MG/ML VIAL 1 ml VIAL IV SLOW PU ONE (06:00)
[2020-04-28] MEDS ORDERED: Lactated Ringers 1000 ml BAG 1,000 ML IV SCH (06:00)
[2020-04-28] MEDS ORDERED: Famotidine IV 10 MG/ML 2 ml VIAL (20 mg) IV ONE (06:00)
[2020-04-28] MEDS ORDERED: ROPIVACAINE 5 MG/ML 30 ML BTL (0.5%) ONE ×2 (06:55→09:43)
[2020-04-28] MEDS ORDERED: fentaNYL 100 mcg/2 ml 50 MCG/ML VIAL ONE ×2 (06:55→07:06)
[2020-04-28] MEDS ORDERED: Lidocaine 2% PF 5 ML VIAL ONE (06:55)
[2020-04-28] MEDS ORDERED: Midazolam 5 mg/5 ml VIAL 1 mg/ml 5 ml VIAL (5 mg) ONE (06:55)
[2020-04-28] MEDS ORDERED: Famotidine IV 10 MG/ML 2 ml VIAL (20 mg) ONE (07:01)
[2020-04-28] MEDS ORDERED: ceFAZolin 2 GM PREMIX 2 GM/50 ML BAG ONE (07:01)
[2020-04-28] MEDS ORDERED: Dexamethasone IV 4 MG/ML VIAL 1 ml VIAL ONE (07:01)
[2020-04-28] MEDS ORDERED: Midazolam 2 mg/2 ml VIAL 1 mg/ml 2 ml VIAL (2 mg) ONE (07:07)
[2020-04-28] MEDS ORDERED: Bupivacaine 0.5% SDV PF 30ML VIAL ONE (07:37)
[2020-04-28] MEDS ORDERED: Lidocaine 2% JELLY 6 ML TOPICAL ONE (08:26)
[2020-04-28] MEDS ORDERED: fentaNYL 100 mcg/2 ml 50 MCG/ML VIAL IV PRN (08:50)
[2020-04-28] MEDS ORDERED: EPHEDrine (Pressors) 50 MG/ML VIAL ONE (08:50)
[2020-04-28] MEDS ORDERED: Naloxone 0.4 mg VIAL 0.4 mg/ml 1 ml VIAL IV PRN (08:50)
[2020-04-28] MEDS ORDERED: Propofol 10 MG/ML 20 ML BTL ONE (08:50)
[2020-04-28] MEDS ORDERED: HYDROmorphone 1 MG/1 ML SYRINGE IV PRN (08:50)
[2020-04-28] MEDS ORDERED: Ondansetron 4 mg VIAL 2 MG/ML 2 ml VIAL IV PRN ×2 (08:50→10:54)
[2020-04-28] MEDS ORDERED: DiMENhydriNATE IV 50 mg/ml 1 ml VIAL IV PUSH PRN (08:50)
[2020-04-28] MEDS ORDERED: Succinylcholine 200 mg VIAL 20 mg/ml 10 ml VIAL (200 mg) ONE (08:50)
[2020-04-28] MEDS ORDERED: Ondansetron 4 mg VIAL 2 MG/ML 2 ml VIAL ONE (10:36)
[2020-04-28] MEDS ORDERED: Lactulose 30 ml UDC PO PRN (10:54)
[2020-04-28] MEDS ORDERED: Ondansetron ODT 4 mg TAB 4 MG TAB PO PRN (10:54)
[2020-04-28] MEDS ORDERED: Morphine 2 MG/ML SYRINGE IV PRN (10:54)
[2020-04-28] MEDS ORDERED: diPHENhydraMINE IV 50 MG/ML 1 ml VIAL (BENADRYL) IV PRN (10:54)
[2020-04-28] MEDS ORDERED: Magnesium Hydroxide LIQ 30 ML UDC PO PRN (10:54)
[2020-04-28] MEDS ORDERED: diPHENhydraMINE 25 mg TAB PO PRN (10:54)
[2020-04-28] MEDS: Lactated Ringers 1000 ml BAG 1,000 ML IV SCH ×2 (12:00→22:41)
[2020-04-28] MEDS: oxyCODONE/Acetamin 5/325 mg TAB PO PRN ×3 (13:22→22:40)
[2020-04-28] MEDS: ceFAZolin 1 GM ADVAN 1 GM in NS 0.9% 50 ML 50 ML IVPB SCH ×2 (16:12→23:57)
[2020-04-28] MEDS: Magnesium Hydroxide LIQ 30 ML UDC PO SCH (21:38)
[2020-04-29] MEDS: oxyCODONE/Acetamin 5/325 mg TAB PO PRN (05:25)
[2020-04-29 05:34] LABS: Hematocrit 33 % (35-47); Hemoglobin 10.9 g/dL (12.0-16.0); Mean Platelet Volume 8.7 fL (7.4-10.4); Platelet Count 209 10^3/uL (150-450)
[2020-04-29 05:48] LABS: BUN/Creatinine Ratio 20.8 (8-20); Calcium 8.8 mg/dL (8.6-10.3); EGFR African American 89.2 (>60); EGFR Non-African American 73.7 (>60)
[2020-04-29] MEDS: ceFAZolin 1 GM ADVAN 1 GM in NS 0.9% 50 ML 50 ML IVPB SCH (07:53)
[2020-04-29] MEDS: Magnesium Hydroxide LIQ 30 ML UDC PO SCH (08:09)
[2020-04-29] MEDS ORDERED: Vitamin THERAPEUTIC TAB PO SCH (09:00)
[2020-04-29 11:43] VITALS: BP 113/52
== END 2020-04-29 14:15 | disposition home or self-care (01) ==
LOC: INTOOBSV 04-28 06:25 → AA 04-28 06:25 → SSU 04-28 11:53
PROVIDERS: ADMIT Orthopaedic Surgery Adult Reconstructive Orthopaedic Surgery; ATTEND Orthopaedic Surgery Adult Reconstructive Orthopaedic Surgery